=== PATIENT | female | born 1950 | race Caucasian/White ===

== ENCOUNTER 2017-08-15 15:02 | Emergency (ER) | payer MEDICARE, MEDICAID ==
[~2017-08-15] VITALS: Ht 157.5 cm; Wt 50.9 kg
[~2017-08-15 15:02] MED LIST: ALPR-624 PO; GABA-532 PO; HYDR-3972 PO; LISI-604 PO; OMEP20TA5 PO; PARO40TA4 PO; [UNRECOGNIZED DRUG - CODE] PO
[2017-08-15 15:09] VITALS: BP 149/73
== END 2017-08-15 17:20 | disposition left against medical advice (07) ==
LOC: ER 15:03
DX: R10.84 Generalized abdominal pain (principal); R11.2 Nausea with vomiting, unspecified; K92.1 Melena; Z53.21 Procedure and treatment not carried out due to patient leaving prior to being seen by health care provider
CPT/HCPCS: 80053; 83690